=== PATIENT | male | born 1975 | race Caucasian/White ===

== ENCOUNTER 2016-11-01 06:21 | Day surgery (SDC) | payer OTHER ==
[~2016-11-01] VITALS: Ht 179.1 cm; Wt 81.8 kg
[~2016-11-01 06:21] MED LIST: MOTRIN800 MG PO; ZANTAC75 M1 PO
[2016-11-01 07:34] VITALS: BP 126/81
[2016-11-01] MEDS ORDERED: PERCOCET 5/31 TABLET PO (09:44)
[2016-11-01 11:20] VITALS: BP 98/66
[2016-11-01 11:50] VITALS: BP 113/65
== END 2016-11-01 11:55 | disposition home or self-care (01) ==
LOC: SDC 06:21
PROC: 0FT44ZZ Resection of Gallbladder, Percutaneous Endoscopic Approach (ICD-10-PCS; principal; 2016-11-01)
DX: K80.10 Calculus of gallbladder with chronic cholecystitis without obstruction (principal); G43.009 Migraine without aura, not intractable, without status migrainosus; J30.9 Allergic rhinitis, unspecified; F31.9 Bipolar disorder, unspecified; M94.0 Chondrocostal junction syndrome [Tietze]; K42.9 Umbilical hernia without obstruction or gangrene; K21.9 Gastro-esophageal reflux disease without esophagitis
CPT/HCPCS: 88304; J0330; J0690; J1100; J1170; J1885; J2405; J2710; J2765; J3010